=== PATIENT | female | born 1980 | race African-American/Black ===

== ENCOUNTER 2017-07-14 21:59 | Emergency (ER) | payer OTHER ==
[~2017-07-14] VITALS: Ht 170.2 cm; Wt 97.7 kg
[~2017-07-14 21:59] MED LIST: OXYC-158 PO
[2017-07-14 22:10] VITALS: BP 131/71
== END 2017-07-14 23:38 | disposition left against medical advice (07) ==
LOC: EMS 21:59
DX: S01.511A Laceration without foreign body of lip, initial encounter (principal); W45.8XXA Other foreign body or object entering through skin, initial encounter; Y93.89 Activity, other specified; Y92.89 Other specified places as the place of occurrence of the external cause; Y99.8 Other external cause status; Z53.21 Procedure and treatment not carried out due to patient leaving prior to being seen by health care provider

== ENCOUNTER 2024-07-31 11:15 | Emergency (ER) | payer OTHER ==
[~2024-07-31] VITALS: Ht 170.2 cm; Wt 95.0 kg
[2024-07-31] MEDS ORDERED: NORE0.3513 PO (11:31)
[2024-07-31] MEDS ORDERED: ACET-2895 PO (11:31)
[2024-07-31] MEDS ORDERED: SUMA50TA17 PO (11:31)
[2024-07-31] MEDS ORDERED: PROP10DR15 OU (11:31)
[2024-07-31] MEDS ORDERED: LIDO700A30 TP (11:31)
[2024-07-31] MEDS ORDERED: CHOL200074 PO (11:31)
[2024-07-31] MEDS ORDERED: [UNRECOGNIZED DRUG - CODE] TP (11:31)
[2024-07-31] MEDS ORDERED: PREG100C56 PO (11:31)
[2024-07-31 11:37] LABS: COVID AG,FIA SOURCE NASAL SWAB
[2024-07-31] MEDS: ACETAMINOPHEN 500 MG TABLET PO ONE (12:04)
[2024-07-31 12:05] LABS: INFLUENZA TYPE A NEGATIVE FOR TYPE A (NEGATIVE); INFLUENZA TYPE B NEGATIVE FOR TYPE B (NEGATIVE); SARS-COV2 (COVID) ANTIGEN,FIA Negative (Negative)
[2024-07-31] MEDS ORDERED: 0.9% SODIUM CHLORIDE 10 ML SYRINGE IVP PRN (12:15)
[2024-07-31] MEDS: SODIUM CHLORIDE 0.9% 1,000 ML IV ONE (12:28)
[2024-07-31] MEDS: KETOROLAC TROMETHAMINE 30 MG/ML VIAL IVP ONE (12:28)
[2024-07-31] MEDS: METOCLOPRAMIDE HCL 5 MG/ML 2 ML VIAL IVP ONE (12:29)
[2024-07-31 12:40] LABS: BASOPHILS % (AUTO) 0.4 % (0.0-2.0); EOSINOPHILS % (AUTO) 0.6 % (1.0-6.0); HEMATOCRIT 33.3 % (36-46); HEMOGLOBIN 10.4 g/dL (12.0-16.0); LYMPHOCYTES # (AUTO) 1.6 K/uL (1.0-4.8); MEAN CORPUSCULAR HEMOGLOBIN 22.4 pg (26.0-34.0); MEAN CORPUSCULAR HGB CONC 31.1 G/dL (31.0-37.0); MEAN CORPUSCULAR VOLUME 72 fL (80-100); MONOCYTES # (AUTO) 0.9 K/uL (0.1-1.0); MONOCYTES % (AUTO) 7.1 % (2.0-9.0); NEUTROPHILS % (AUTO) 78.9 % (40.0-70.0); PLATELET COUNT (AUTO) 342 K/uL (150-450); RED BLOOD CELL COUNT(AUTO) 4.63 MIL/uL (4.00-5.20); RED CELL DISTRIBUTION WIDTH 13.7 % (11.5-14.5); WHITE BLOOD COUNT (AUTO) 12.6 K/uL (4.5-11.0)
[2024-07-31 12:44] LABS: ANION GAP 10 mmol/L (8-16); CALCIUM, TOTAL 9.2 mg/dL (8.8-10.5); CARBON DIOXIDE 28 mmol/L (22-29); CHLORIDE 97 mmol/L (98-107); CREATININE 0.95 mg/dL (0.60-1.30); GLOMERULAR FILTR. RATE CALC > 60 mL/min (>60); GLUCOSE,RANDOM 108 mg/dL (70-110); POTASSIUM 3.4 mmol/L (3.5-5.1); SODIUM SERUM 135 mmol/L (136-145); UREA NITROGEN, BLOOD 7 mg/dL (7-18)
[2024-07-31 12:56] LABS: HCG,QUANTITATIVE < 1 mIU/mL (0-6)
[2024-07-31 13:06] LABS: LACTIC ACID 1.4 mmol/L (0.4-2.0)
[2024-07-31 13:16] VITALS: BP 117/63; PULSE 89; RESP 18; TEMP 100.3; O2SAT 96
[2024-07-31 13:35] LABS: APPEARANCE,URINE HAZY (CLEAR); BILIRUBIN,URINE NEGATIVE (NEGATIVE); COLOR,URINE YELLOW (YELLOW); GLUCOSE, URINE (UA) NEGATIVE (NEGATIVE); KETONES,URINE 40-60 mg/dL (NEGATIVE); LEUKOCYTE ESTERASE ,URINE TRACE (NEGATIVE); NITRATE,URINE NEGATIVE (NEGATIVE); OCCULT BLOOD,URINE MODERATE (NEGATIVE); PROTEIN,URINE 100-200,SEE CONFIRM mg/dL (NEGATIVE); SPECIFIC GRAVITIY, URINE 1.034 (1.003-1.030); UROBILINOGEN,URINE <=1.0 mg/dL (<=1.0)
[2024-07-31 13:52] LABS: BACTERIA,URINE Moderate /HPF (None Seen); RBC,URINE 0-2 /HPF (0-2); SQUAMOUS EPITHELIAL CELL,UR Moderate /LPF (None Seen); SULFOSALICYLIC ACID,URINE 1+ (Negative); WBC,URINE 0-2 /HPF (0-5)
== END 2024-07-31 14:37 | disposition home or self-care (01) ==
LOC: EMS 11:15
DX: J06.9 Acute upper respiratory infection, unspecified (principal); B97.89 Other viral agents as the cause of diseases classified elsewhere; Z90.49 Acquired absence of other specified parts of digestive tract; Z79.899 Other long term (current) drug therapy; Z20.822 Contact with and (suspected) exposure to COVID-19
CPT/HCPCS: 99284; 96374; 71045; 96361; 96375; 87426; 80048; 81001; 83605; 84702; 85025; 87040; 87086; 87804; 36415; 84145; J1885; J2765; J7030; 81002